=== PATIENT | female | born 1975 | race African-American/Black ===

== ENCOUNTER 2021-07-16 11:54 | Emergency (ER) | payer SELFPAY ==
[2021-07-16 12:50] LABS: Urine Blood Negative (Negative); Urine Glucose Negative (Negative); Urine Protein Negative (Negative); Urine Specific Gravity 1.015 (1.005-1.030)
--- NOTE | 2021-07-16 12:56 | EDPHYS ---
Physician Documentation [facility] Name: Titus Abreu Age: 46 yrs Sex: Female : 1975 Arrival Date: 07/16/2021 Time: 12:12 Bed 9 Private MD: ED Physician Viktor Srivastava HPI: 07/16 12:35 This 46 yrs old Black Female presents to ER via Ambulatory with complaints of Urinary jmm Problem. 12:35 The patient presents with urinary symptoms, dysuria, frequency. Onset: The jmm symptoms/episode began/occurred gradually, 4 day(s) ago. Modifying factors: The symptoms are alleviated by nothing, the symptoms are aggravated by nothing. Associated signs and symptoms: Pertinent positives: dysuria, Pertinent negatives: fever. It is unknown whether or not the patient has had similar symptoms in the past. Historical: - Allergies: 12:27 PENICILLINS; iw ROS: 12:35 Constitutional: Negative for fever, chills, and weight loss, Cardiovascular: Negative jmm for chest pain, palpitations, and edema, Respiratory: Negative for shortness of breath, cough, wheezing, and pleuritic chest pain, Abdomen/GI: Negative for abdominal pain, nausea, vomiting, diarrhea, and constipation. 12:35 Back: Positive for flank pain, bilaterally. 12:35 : Positive for urinary symptoms. 12:35 All other systems are negative. Exam: 12:35 Constitutional: This is a well developed, well nourished patient who is awake, alert, jmm and in no acute distress. Head/Face: atraumatic. Eyes: EOMI, no conjunctival erythema appreciated ENT: Moist Mucus Membranes Neck: Trachea midline, Supple Chest/axilla: Normal chest wall appearance and motion. Cardiovascular: Regular rate and rhythm. No edema appreciated Respiratory: Normal respirations, no respiratory distress appreciated Abdomen/GI: Non distended, soft Back: Normal ROM Skin: General appearance color normal MS/ Extremity: Moves all extremities, no obvious deformities appreciated, no edema noted to the lower extremities Neuro: Awake and alert Psych: Behavior is normal, Mood is normal, Patient is cooperative and pleasant Vital Signs: 12:26 BP 143 / 107; Pulse 91; Resp 16; Temp 98.6; Pulse Ox 100% on R/A; Weight 65.32 kg; iw Height 5 ft. 7 in. (170.18 cm); 12:26 Body Mass Index 22.55 (65.32 kg, 170.18 cm) MDM: 12:35 Patient medically screened. [facility] 12:55 Data reviewed: vital signs, nurses notes. Counseling: I had a detailed discussion with patricia the patient and/or guardian regarding: the historical points, exam findings, and any diagnostic results supporting the discharge/admit diagnosis, the need for outpatient follow up, to return to the emergency department if symptoms worsen or persist or if there are any questions or concerns that arise at home. 07/16 12:35 Order name: Urine Culture [facility] 07/16 12:51 Order name: Urine Dipstick-Ancillary; Complete Time: 12:56 [facility] 07/16 12:35 Order name: Urine Dipstick-Ancillary (obtain specimen); Complete Time: 13:02 [facility] 07/16 12:35 Order name: Urine Test (obtain specimen); Complete Time: 13:11 [facility] 07/16 13:12 Order name: Urine Dipstick-Ancillary [facility] 07/16 13:13 Order name: Urine --Ancillary (enter results) dh3 Administered Medications: No medications were administered Disposition: 12:55 Chart complete. Chart complete. [facility] Disposition Summary: 07/16/21 12:55 Discharge Ordered Location: Home [facility] Condition: Stable [facility] Diagnosis - UTI/ Urinary tract infection, site not specified [facility] Followup: [facility] - With: Private Physician - When: 2 - 3 days - Reason: Recheck today's complaints, Continuance of care, Re-evaluation by your physician Discharge Instructions: - Discharge Summary Sheet [facility] - Urinary Tract Infection, Adult [facility] Forms: - Medication Reconciliation Form [facility] - Thank You Letter [facility] - Antibiotic Education [facility] - Prescription Opioid Use [facility] - Work release form Prescriptions: - Cipro 500 mg Oral Tablet - take 1 tablet by ORAL route every 12 hours for 10 days; 20 tablet; Refills: 0, [facility] Product Selection Permitted - Pyridium 200 mg Oral Tablet - take 1 tablet by ORAL route every 8 hours for 3 days; 9 tablet; Refills: 0, [facility] Product Selection Permitted Signatures: Dispatcher [employer] Patrick Izquierdo PA PA jmm Williams, Irene, RN RN iw
--- NOTE | 2021-07-16 12:56 | ER ---
Nurse's Notes [facility] Name: Titus Abreu Age: 46 yrs Sex: Female : 1975 Arrival Date: 07/16/2021 Time: 12:12 Bed 9 Private MD: Diagnosis: UTI/ Urinary tract infection, site not specified Presentation: 07/16 12:26 Chief complaint: Patient states: thinks she has a bladder infection or UTI, has pain in iw kidneys , denies pain with urination. Coronavirus screen: At this time, the client does not indicate any symptoms associated with coronavirus-19. Ebola Screen: Patient negative for fever greater than or equal to 101.5 degrees Fahrenheit, and additional compatible Ebola Virus Disease symptoms Patient denies exposure to infectious person. Patient denies travel to an Ebola-affected area in the 21 days before illness onset. No symptoms or risks identified at this time. Initial Sepsis Screen: Does the patient meet any 2 criteria? No. Patient's initial sepsis screen is negative. Does the patient have a suspected source of infection? No. Patient's initial sepsis screen is negative. Risk Assessment: Do you want to hurt yourself or someone else? Patient reports no desire to harm self or others. Onset of symptoms was July 12, 2021. 12:26 Method Of Arrival: Ambulatory iw 12:26 Acuity: JUDD 3 iw Historical: - Allergies: 12:27 PENICILLINS; iw Assessment: 13:12 General: Appears in no apparent distress. Behavior is calm, cooperative. Neuro: Level iw of Consciousness is awake, alert, obeys commands. Vital Signs: 12:26 BP 143 / 107; Pulse 91; Resp 16; Temp 98.6; Pulse Ox 100% on R/A; Weight 65.32 kg; iw Height 5 ft. 7 in. (170.18 cm); 12:26 Body Mass Index 22.55 (65.32 kg, 170.18 cm) iw ED Course: 12:12 Patient arrived in ED. rg4 12:27 Triage completed. iw 12:28 Patrick Dial PA is PHCP. [facility] 12:28 Viktor Srivastava MD is Attending Physician. [facility] 13:02 Anahi Hong, RN is Primary Nurse. iw 13:11 Urine Culture Sent. ap3 13:11 Urine collected: clean catch specimen, cloudy. [facility] 13:12 Arm band placed on. 13:12 Patient has correct armband on for positive identification. Bed in low position. Call [facility] light in reach. Side rails up X 1. Pulse ox on. NIBP on. Administered Medications: No medications were administered Outcome: 12:55 Discharge ordered by . patricia 13:26 Patient left the ED. [id number] Signatures: Patrick Dial PA PA jmm Williams, Irene, RN RN Shoshana Landeros Maria Sandra Vegas RN RN [email or web address] Tracy Vasquez, RN RN [id number]
[2021-07-16 13:11] LABS: Urine Blood Negative (Negative); Urine Glucose Negative (Negative); Urine Protein Negative (Negative)
[2021-07-16] MEDS ORDERED: CIPROFLOXACIN HCL 500 MG TAB ONE (13:28)
[2021-07-16 13:41] VITALS: BP 143/107; TEMP 98.6; O2SAT 100
== END 2021-07-16 13:26 | disposition home or self-care (01) ==
LOC: ER 11:54
DX: N39.0 Urinary tract infection, site not specified (principal); Z88.0 Allergy status to penicillin
CPT/HCPCS: 81003; 81025; 87086; 87088; 99283